=== PATIENT | male | born 1995 | race Caucasian/White ===

== ENCOUNTER 2016-10-21 02:56 | Emergency (ER) | payer BC ==
[~2016-10-21] VITALS: Ht 175.3 cm; Wt 83.6 kg
[2016-10-21 03:02] VITALS: TEMP 36.8; Ht 175.3 cm; Wt 83.6 kg
[2016-10-21] MEDS ORDERED: LIDOCAINE/EPINEPH/TETRACAINE 1 EA SYR ONE (03:09)
[2016-10-21] MEDS ORDERED: MULT-506 PO (03:23)
--- NOTE | 2016-10-21 03:25 | EMERGENCY ROOM VISIT NOTE ---
History First contact with patient: 03:06 Chief Complaint: LACERATION/CUT (SUT/DERMABOND) Stated Complaint: LAC Nursing Triage Summary: pt reports that he tripped and fell into a coffee table. pt has lac to right eyebrow History of Present Illness The patient is a 21 year old male who presents to the Emergency Room with complaints of right eyebrow laceration after he accidentally tripped and fell striking his head on the coffee table just prior to arrival. Patient states he had a few alcoholic beverages but does not feel intoxicated. Patient denies headache, loss of conscious, facial pain, eye pain, dental pain, neck pain, chest pain, dyspnea or any other medical complaints. Tetanus is current. Review of Systems See HPI for pertinent positives & negatives. A total of 10 systems reviewed and were otherwise negative. Past Medical/Surgical History None Social History Smoking Status: Current Some Day Smoker Alcohol Use: occasionally Drug Use: none Occupation Status: [employer] student Allergies Coded Allergies: No Known Allergies (Unverified , 10/21/16) Physical Exam Vital Signs Date Time Temp Pulse Resp B/P Pulse Ox O2 Delivery O2 Flow Rate FiO2 10/21/16 03:02 36.8 111 20 106/68 96 Room Air Physical Exam VITALS: Vitals are noted on the nurse's note and reviewed by myself. Vital signs stable. GENERAL: Pleasant male answering questions appropriately, in no acute distress, nondiaphoretic, well-developed well-nourished. SKIN: 2.6 cm laceration to the right eyebrow that is gaping and appears clean The rest of the skin was without rashes, erythema, edema, or bruising. There is no tenting of the skin. Capillary reflex less than 2 seconds. HEAD: Normocephalic atraumatic. Face: Nontender to palpation. Patient can fully open and close jaw without difficulties. Dental exam: No loose or chipped teeth. EARS: External auditory canals clear, tympanic membranes pearly sorenson without erythema or effusion bilaterally. EYES: Pupils equal round and reactive to light and accommodation. Conjunctivae without injection, sclerae without icterus. Extraocular movements intact. NOSE: Patent, turbinates without inflammation or discharge. No sinus tenderness. MOUTH: Mucous membranes moist. Pharynx without erythema or exudate. Uvula midline. Airway patent. Tongue does not deviate. NECK: Supple without nuchal rigidity. No lymphadenopathy. No thyromegaly. Cervical spine is nontender. No JVD. HEART: Regular rate and rhythm without murmurs gallops or rubs. LUNGS: Clear to auscultation bilaterally without wheezes, rales or rhonchi. No dullness to percussion. No retractions or accessory muscle use. ABDOMEN: Positive bowel sounds x 4. Normal tympanic percussion. Soft, nontender, without masses or organomegaly. Huntley sign negative. No guarding or rebound tenderness. MUSCULOSKELETAL: No muscle atrophy, erythema, or edema noted. NEURO: Patient was alert and oriented to person place and time. Normal sensation to light and sharp touch. No focal neurological deficits. Medical Decision & Procedures Medications Administered Medications (Trade) Dose Ordered Sig/Maria Teresa Route Start Time Stop Time Status Last Admin Dose Admin Tetracaine/ Epinephrine/ Lidocaine (L.e.t. Gel 4%/ 1:100/0.5%) 1 ea STK-MED ONCE .ROUTE 10/21/16 03:09 10/21/16 03:11 DC 10/21/16 03:17 1 EA Procedure Location: face Total length: 2.6cm Complexity: simple Verbal consent was obtained after the risks and benefits were explained, including but not limited to bleeding, scarring, infection, pain, and bone/joint /nerve damage. At this time, the risks of the procedure are less than the risks of NOT performing the procedure. A time out was taken and the correct patient and site identified. The skin was prepped with betadine. The target area was anesthetized with LET. Copious irrigation was performed using NSS. The skin was re-prepped with betadine and a sterile field set. The wound was explored for foreign bodies and none found. Examination revealed no injury to deep structures such as tendons, bone, or significant blood vessels. Debridement was not performed. The wound edges were approximated using 4, 6-0 simple interrupted nylon sutures. Hemostasis and excellent approximation was achieved. Antibacterial ointment and a sterile dressing applied. Detailed wound care instructions and signs and symptoms of infection reviewed with the pt. No complications and the patient tolerated the procedure well. ED Course Prior records/ancillary studies reviewed. Triage Nursing notes reviewed. Additional history obtained from friends The patient's history was concerning for traumatic head injury Differential diagnosis: Etiologies such as concussion, contusion, fracture, subdural hematoma, epidural hematoma, intraparenchymal hemorrhage, as well as other traumatic pathologies were entertained. Physical examination findings: As above. ER treatment provided: Laceration repaired as above On reassessment the patient felt better. Diagnostics interpreted by me: Deferred It appears the patient has a head injury with facial laceration. I discussed the risks and the benefits of CT scanning. Clinically the patient is doing well and does not appear to have a significant underlying injury. The pt felt comfortable with conservative observation with the understanding if the clinical picture change that imaging may be necessary at a later time. I gave my usual and customary discussion regarding this issue. Patient was counseled on head injury signs and symptoms and on laceration care. He was advised no alcohol or strenuous activity for the week and do not resume his activities until symptom-free and cleared by health services. He was advised sutures come out in 5-7 days. He was advised to return to the ER immediately for headache, fevers, confusion, worsening signs or symptoms or as needed. Patient was neurovascular and neurologically intact. He was well-appearing. By the evaluation outlined above emergent etiologies such as fracture, subdural hematoma, epidural hematoma, intraparenchymal hemorrhage, as well as others were deemed relatively unlikely. The pt informed about the findings as listed above. All questions were answered and pleased with the treatment. Return instructions were outlined and the patient was discharged in stable condition. Referral: The patient was referred back to their primary care physician for follow-up in 2 to 3 days for a recheck of the current condition. Medical Decision As above Impression Primary Impression: Mild closed head injury Additional Impression: Facial laceration Departure Information Dispostion Home / Self-Care Condition GOOD Referrals No Doctor, Assigned (PCP) Patient Instructions [facility] Additional Instructions Keep wound clean and dry. Do not allow any crusting or dried blood to accumulate on sutures. If this occurs, use a 1:1 solution of hydrogen peroxide/ water on a Q-tip to clean the wound. Use an antibiotic ointment for 3-4 days, then let wound dry. Suture removal in 5-7 days. Return sooner for any signs of infection (increasing redness, swelling, drainage). Ice and elevate for swelling and pain. Keep covered when in sun until sutures removed then SPF 50 or higher for one year. Vitamin E oil if desired two weeks after suture removal for reduction of scar Read head injury handout and return for any symptoms. Tylenol 1000 mg as needed for pain (Maximum 3000 mg Tylenol in 24 hr period). Avoid alcohol and contact sports/activities for one week and follow up with family doctor prior to returning to these activities if still symptomatic. Ice and elevate head. If your symptoms persist more than a week then follow up with the concussion clinic. Call [phone]. Return to ER sooner for headache, fevers, confusion, worsening signs or symptoms or as needed. Problem Qualifiers Primary Impression: Mild closed head injury Encounter type: initial encounter Qualified Codes: S09.90XA - Unspecified injury of head, initial encounter Additional Impression: Facial laceration Encounter type: initial encounter Qualified Codes: S01.81XA - Laceration without foreign body of other part of head, initial encounter
[2016-10-21 03:58] VITALS: BP 116/78; PULSE 114; O2SAT 98
== END 2016-10-21 03:59 | disposition home or self-care (01) ==
LOC: EDBD 02:57 → C.EDB 02:57 → C.EDA 03:59
DX: S01.111A Laceration without foreign body of right eyelid and periocular area, initial encounter (principal); S09.90XA Unspecified injury of head, initial encounter; W01.0XXA Fall on same level from slipping, tripping and stumbling without subsequent striking against object, initial encounter; F17.200 Nicotine dependence, unspecified, uncomplicated

== ENCOUNTER 2017-11-07 15:56 | Emergency (ER) | payer BC ==
[~2017-11-07] VITALS: Ht 172.7 cm; Wt 75.6 kg
[~2017-11-07 15:56] MED LIST: MULT-506 PO
[2017-11-07 16:01] VITALS: TEMP 36.9; Ht 172.7 cm; Wt 75.6 kg
[2017-11-07] MEDS ORDERED: SODIUM CHLORIDE 0.9% 1000ML 1,000 ML IV STA (16:06)
--- NOTE | 2017-11-07 16:35 | EMERGENCY ROOM VISIT NOTE ---
History Report prepared by Jewell: Rafal Bhat Under the Supervision of: Dr. Darren Moctezuma M.D. First contact with patient: 16:05 Chief Complaint: OTHER COMPLAINT Stated Complaint: LIGHT HEADEDNESS, HEART RACING, GENERAL UNWELL History of Present Illness The patient is a 22 year old male who presents to the Emergency Room with complaints of episodes of heart palpitations that started around a week ago. He states that before leaving for the [facility] last week, he tried "leaning out" on a low-carbohydrate diet. The patient says that his heart started to feel "uneasy " a few days into the new diet. The patient states that he then started drinking Pedialyte because he knew he would be drinking a lot of alcohol in the [facility], and wanted to get healthy. He notes that he then went to the [facility] a week ago, and drank a lot of alcohol without eating much. The patient says that on the 3rd day into the trip, he woke up with his heart not "feeling right", with episodes of diarrhea and abdominal cramping. The patient states that his symptoms lasted for 3 days, and then he called his parents and flew back home early from the trip. He notes that his abdominal pain has lessened since then, and the diarrhea has resolved, but his "uneasiness" in his chest has persisted, with episodes where he would "almost panic" and get worked up. The patient states that his heart would race in episodes, and even at the grocery store prior to arrival today, he got dizzy with tingling in his feet. The patient adds that he was "seeing stars", and these vision difficulties occurred on the trip as well. He then decided to come here for evaluation. The patient notes no history of lightheadedness like this. He says that he has been a bit short of breath during the episodes as well, but no pains. He notes no pertinent past medical history. The patient's father has had several stents placed. Pt denies LOC, headache, fevers, chills, diaphoresis, neck pain, chest pain, vomiting, current abdominal pain, back pain, melena, hematochezia, urinary symptoms, worsening lymphadenopathy, rash, or other complaints. Source of History: patient Onset: Around a week ago Position: other (heart) Quality: other (palpitations) Timing: other (episodes) Associated Symptoms: + abdominal pain (but has resolved), + diarrhea (but has resolved) Note: Associated symptoms: Heart "not feeling right". Lightheadedness, "seeing stars". Review of Systems See HPI for pertinent positives and negatives. A total of ten systems were reviewed and were otherwise negative. Past Medical & Surgical Medical Problems: (1) No chronic diseases present Family History Cancer Heart disease Social History Smoking Status: Current Some Day Smoker Alcohol Use: occasionally Drug Use: none Housing Status: lives with roommate Occupation Status: [employer] student Current/Historical Medications No Active Prescriptions or Reported Meds Allergies Coded Allergies: No Known Allergies (Unverified , 10/21/16) Physical Exam Vital Signs Date Time Temp Pulse Resp B/P (MAP) Pulse Ox O2 Delivery O2 Flow Rate FiO2 11/07/17 18:30 69 18 131/61 97 11/07/17 17:55 69 18 131/61 97 Room Air 11/07/17 16:44 75 11/07/17 16:01 36.9 88 20 139/79 100 Room Air Physical Exam GENERAL: Awake, alert, well-appearing, in no distress HENT: Normocephalic, atraumatic. Oropharynx unremarkable. EYES: Normal conjunctiva. Sclera non-icteric. NECK: Supple. No nuchal rigidity. FROM. No masses. RESPIRATORY: Clear to auscultation. No wheezes. CARDIAC: Normal rate. Normal rhythm. No murmurs. No rubs. Extremities warm and well perfused. Pulses equal. No JVD. GI: Soft, non-distended. No tenderness to palpation. No rebound or guarding. No masses. RECTAL: Deferred. MUSCULOSKELETAL: Atraumatic. Chest examination reveals no tenderness. The back is symmetrical on inspection without obvious abnormality. There is no CVA tenderness to palpation. No joint edema. LOWER EXTREMITIES: Calves are equal size bilaterally and non-tender. No edema. No discoloration. NEURO: Normal sensorium. No sensory or motor deficits noted. SKIN: No rash or jaundice noted. Medical Decision & Procedures Laboratory Results 11/07/17 16:21 Red Blood Count 5.12, Mean Corpuscular Volume 90.6, Mean Corpuscular Hemoglobin 32.0, Mean Corpuscular Hemoglobin Concent 35.3, Mean Platelet Volume 10.6, Neutrophils (%) (Auto) 64.5, Lymphocytes (%) (Auto) 26.5, Monocytes (%) (Auto) 7.3, Eosinophils (%) (Auto) 0.8, Basophils (%) (Auto) 0.6, Neutrophils # (Auto) 4.68, Lymphocytes # (Auto) 1.92, Monocytes # (Auto) 0.53, Eosinophils # (Auto) 0.06, Basophils # (Auto) 0.04 11/07/17 16:21 11/07/17 17:22 Test 11/07/17 16:21 11/07/17 17:22 11/07/17 18:06 White Blood Count 7.25 K/uL (4.8-10.8) Red Blood Count 5.12 M/uL (4.7-6.1) Hemoglobin 16.4 g/dL (14.0-18.0) Hematocrit 46.4 % (42-52) Mean Corpuscular Volume 90.6 fL (80-100) Mean Corpuscular Hemoglobin 32.0 pg (25-34) Mean Corpuscular Hemoglobin Concent 35.3 g/dl (32-36) Platelet Count 191 K/uL (130-400) Mean Platelet Volume 10.6 fL (7.4-10.4) Neutrophils (%) (Auto) 64.5 % Lymphocytes (%) (Auto) 26.5 % Monocytes (%) (Auto) 7.3 % Eosinophils (%) (Auto) 0.8 % Basophils (%) (Auto) 0.6 % Neutrophils # (Auto) 4.68 K/uL (1.4-6.5) Lymphocytes # (Auto) 1.92 K/uL (1.2-3.4) Monocytes # (Auto) 0.53 K/uL (0.11-0.59) Eosinophils # (Auto) 0.06 K/uL (0-0.5) Basophils # (Auto) 0.04 K/uL (0-0.2) RDW Standard Deviation 42.9 fL (36.4-46.3) RDW Coefficient of Variation 12.9 % (11.5-14.5) Immature Granulocyte % (Auto) 0.3 % Immature Granulocyte # (Auto) 0.02 K/uL (0.00-0.02) Anion Gap 7.0 mmol/L (3-11) Est Creatinine Clear Calc Drug Dose 101.9 ml/min Estimated GFR () 109.9 Estimated GFR (Non- 94.8 BUN/Creatinine Ratio 15.0 (10-20) Calcium Level 9.5 mg/dl (8.5-10.1) Total Bilirubin 1.1 mg/dl (0.2-1) Alanine Aminotransferase (ALT/SGPT) 35 U/L (12-78) Alkaline Phosphatase 59 U/L (45-117) Troponin I < 0.015 ng/ml (0-0.045) Total Protein 8.5 gm/dl (6.4-8.2) Albumin 4.7 gm/dl (3.4-5.0) Lipase 151 U/L (73-393) Magnesium Level 2.0 mg/dl (1.8-2.4) Direct Bilirubin 0.2 mg/dl (0-0.2) Aspartate Amino Transf (AST/SGOT) 17 U/L (15-37) Urine Color YELLOW Urine Appearance CLEAR (CLEAR) Urine pH 6.0 (4.5-7.5) Urine Specific [place] 1.019 (1.000-1.030) Urine Protein NEG (NEG) Urine Glucose (UA) NEG (NEG) Urine Ketones NEG (NEG) Urine Occult Blood NEG (NEG) Urine Nitrite NEG (NEG) Urine Bilirubin NEG (NEG) Urine Urobilinogen NEG (NEG) Urine Leukocyte Esterase NEG (NEG) Laboratory results reviewed by me Medications Administered Medications (Trade) Dose Ordered Sig/Maria Teresa Route Start Time Stop Time Status Last Admin Dose Admin Sodium Chloride 1,000 ml @ 999 mls/hr Q1H1M STAT IV 11/07/17 16:06 11/07/17 17:06 DC 11/07/17 16:36 999 MLS/HR ECG Per My Interpretation Indication: palpitations Rate (beats per minute): 74 Rhythm: normal sinus Findings: no acute ischemic change, no ectopy, other (mild J-point elevation) ED Course 1606: NSS 1000 ml @ 999 mls/hr IV. 1610: The patient was evaluated in room B7. A complete history and physical exam was performed. 1720: I reevaluated the patient and he is feeling better. 1823: I reevaluated the patient and he is resting comfortably. Discussed results and discharge instructions: he verbalized understanding and agreement. The patient is ready for discharge. Medical Decision Triage Nursing notes reviewed. The patient's presentation and history were concerning for palpitations, near syncope, recent travel, and recent nausea/vomiting/diarrhea. Etiologies such as metabolic, infection, hypo/hyperglycemia, electrolyte abnormalities, cardiac sources, intracerebral event, toxicologic, neurologic, as well as others were entertained. Patient was evaluated. Clinically he looked well. His physical examination was benign. Blood work was obtained. He was hydrated. An ECG was performed. The patient was placed on a traffic monitor specialist. Cardiac monitoring during his time in the emergency department revealed no evidence of dysrhythmia or ectopy. The patient had unremarkable blood work and electrolytes. Urinalysis was negative. ECG was unremarkable as well. On reassessment he was feeling much better after the hydration and reassurance. I discussed conservative management with him and his mother. He will follow up with [facility]. He will avoid any alcohol or unusual dietary modifications. The patient will come back to the emergency department if he has any worsening symptoms. I gave my usual and customary discussion regarding this issue. By the evaluation outlined above other emergent etiologies such as those listed in the differential, as well as others, were deemed relatively unlikely. The patient was educated about the findings as listed above. All questions were answered and the patient was pleased with the treatment. Return instructions were outlined and the patient was discharged in stable condition. The patient was referred to [facility] for follow-up for a recheck of the current condition. Medication Reconcilliation Current Medication List: was personally reviewed by me Blood Pressure Screening Patient's blood pressure: Elevated blood pressure Refer to [facility]. Impression Primary Impression: Palpitations Additional Impressions: Weakness Nausea, vomiting and diarrhea Scribe Attestation The scribe's documentation has been prepared under my direction and personally reviewed by me in its entirety. I confirm that the note above accurately reflects all work, treatment, procedures, and medical decision making performed by me. Departure Information Dispostion Home / Self-Care Prescriptions No Active Prescriptions or Reported Meds Referrals No Doctor, Assigned (PCP) Patient Instructions My [facility] Additional Instructions Rest and drink plenty of fluids as tolerated. Avoid any alcohol this week. Continue current medications. Resume normal activities once your symptoms resolve. Eat a heart healthy, low fat, low cholesterol diet. Return to the ER immediately for passing out, chest pain, abdominal pain, vomiting, fevers, difficulty breathing, worsening of your condition, or as needed. Follow up with [facility] in 2-3 days for a recheck of your current condition. Problem Qualifiers
[2017-11-07 16:36] LABS: BASO % 0.6 %; BASO ABS # 0.04 K/uL (0-0.2); EOS % 0.8 %; EOS ABS # 0.06 K/uL (0-0.5); HEMATOCRIT 46.4 % (42-52); HEMOGLOBIN 16.4 g/dL (14.0-18.0); IG# 0.02 K/uL (0.00-0.02); LYMPH % 26.5 %; LYMPH ABS # 1.92 K/uL (1.2-3.4); MEAN CELL VOLUME 90.6 fL (80-100); MEAN CORPUSCULAR HGB CONC 35.3 g/dl (32-36); MEAN PLATELET VOLUME 10.6 fL (7.4-10.4); MONO % 7.3 %; MONO ABS # 0.53 K/uL (0.11-0.59); NEUT % 64.5 %; NEUT ABS # 4.68 K/uL (1.4-6.5); PLATELET COUNT 191 K/uL (130-400); RED CELL DISTRIBUTION WIDTH CV 12.9 % (11.5-14.5); RED CELL DISTRIBUTION WIDTH SD 42.9 fL (36.4-46.3); WHITE BLOOD COUNT 7.25 K/uL (4.8-10.8)
[2017-11-07 17:07] LABS: BLOOD UREA NITROGEN 16 mg/dl (7-18); GLUCOSE 85 mg/dl (70-99); SODIUM 137 mmol/L (136-145)
[2017-11-07 17:08] LABS: ALBUMIN 4.7 gm/dl (3.4-5.0); ALKALINE PHOSPHATASE 59 U/L (45-117); ALT/SGPT 35 U/L (12-78); CALCIUM 9.5 mg/dl (8.5-10.1); CARBON DIOXIDE 28 mmol/L (21-32); LIPASE 151 U/L (73-393); TOTAL PROTEIN 8.5 gm/dl (6.4-8.2)
[2017-11-07 17:55] LABS: POTASSIUM 3.8 mmol/L (3.5-5.1)
[2017-11-07 18:30] VITALS: BP 131/61; PULSE 69; O2SAT 97
== END 2017-11-07 18:30 | disposition home or self-care (01) ==
LOC: C.EDB 15:59
DX: R00.2 Palpitations (principal); R53.1 Weakness; R11.2 Nausea with vomiting, unspecified; R19.7 Diarrhea, unspecified; F17.200 Nicotine dependence, unspecified, uncomplicated; Z80.9 Family history of malignant neoplasm, unspecified; Z82.49 Family history of ischemic heart disease and other diseases of the circulatory system